=== PATIENT | male | born 1980 | race Two or more races ===

== ENCOUNTER 2024-06-19 05:47 | Inpatient (IN) | payer MEDICAID, OTHER ==
[~2024-06-19] VITALS: Ht 182.9 cm; Wt 72.0 kg
[2024-06-19] VITALS (8 sets, daily range): BP systolic 119–133; BP diastolic 67–77; PULSE 76–111; RESP 17–20; TEMP 98–98.6; O2SAT 94–98
[2024-06-19] MEDS: ONDANSETRON HCL 4 MG/2 ML VIAL IV ONE (07:11)
[2024-06-19] MEDS: THIAMINE 100mg/ml INJ (200mg/2ml VIAL) IV ONE (07:11)
[2024-06-19] MEDS: SODIUM CHLORIDE 0.9% 1,000 ML IV ONE ×2 (07:15→07:53)
[2024-06-19 07:50] LABS: Basophils # (auto) 0 10 ^3/uL (0-0.2); Basophils % (auto) 0.8 % (0.0-2.0); Eosinophils # (auto) 0 10 ^3/uL (0-0.8); Eosinophils % (auto) 0.3 % (0.0-7.0); Hematocrit 42.9 % (41.0-53.0); Hemoglobin 14.6 g/dL (13.5-17.5); Lymphocytes # (auto) 0.4 10 ^3/uL (0.4-5.4); Lymphocytes % (auto) 9.1 % (10.0-50.0); Mean Corpuscular Hemoglobin 31.5 pg (28.0-32.0); Mean Corpuscular Hgb Conc. 33.9 g/dL (32.0-36.0); Mean Corpuscular Volume 92.8 fL (80.0-100.0); Monocytes # (auto) 0.2 10 ^3/uL (0-1.3); Monocytes % (auto) 6.1 % (0.0-12.0); Neutrophils # (auto) 3.4 10 ^3/uL (1.6-8.6); Neutrophils % (auto) 83.7 % (37.0-80.0); Platelet Count (auto) 149 10^3/uL (140-450); Red Blood Cells 4.63 10^6/uL (4.5-5.90); Red Cell Distribution Width 16.5 % (11.8-14.3)
[2024-06-19] MEDS: LORazepam 2MG/ML-1ML VIAL IV ONE ×2 (07:53→10:30)
[2024-06-19 08:18] LABS: Chloride 104 mmol/L (98-107); Potassium 3.4 mmol/L (3.5-5.1); Sodium 143 mmol/L (136-145)
[2024-06-19 08:19] LABS: Anion Gap 12 (5-15); Calcium 9.2 mg/dL (8.7-10.4); Carbon Dioxide 27 mmol/L (20-30)
[2024-06-19 08:24] LABS: BUN/Creatinine Ratio 11.3 (10.0-20.0); Blood Urea Nitrogen 8 mg/dL (9-23); Glucose 106 mg/dL (74-106)
[2024-06-19] MEDS ORDERED: MORPHINE SULFATE INJ 2 MG/ml SYRG IV PRN (09:30)
[2024-06-19] MEDS ORDERED: LORazepam 2MG/ML-1ML VIAL IV PRN (09:30)
[2024-06-19] MEDS ORDERED: DOCUSATE SOD 100 MG CAP PO PRN (09:30)
[2024-06-19] MEDS: SODIUM CHLORIDE 0.9% 1,000 ML IV SCH (09:52)
[2024-06-19] MEDS: PANTOPRAZOLE 40 MG/10 ML VIAL INJ IV ONE (10:00)
[2024-06-19] MEDS: POTASSIUM CHL 20MEQ/100ML 100 ML IV SCH (10:00)
[2024-06-19] MEDS: ONDANSETRON HCL 4 MG/2 ML VIAL IV PRN (10:18)
[2024-06-19 10:23] LABS: Blood Alcohol 116.8 mg/dL (<10)
[2024-06-19 10:24] LABS: Phosphorus 2.3 mg/dL (2.4-5.1)
[2024-06-19] MEDS: LORazepam 2MG/ML-1ML VIAL IV PRN (10:28)
[2024-06-19] MEDS ORDERED: NITROGLYCERIN 0.4 MG SL TAB SL PRN (10:30)
[2024-06-19] MEDS ORDERED: chlorproMAZINE INECTION 25 MG in SODIUM CHL 0.9% 50 ML IV PRN (12:00)
[2024-06-19] MEDS ORDERED: FOLIC ACID 1 MG, MAGNESIUM SULF SDV 50% 8 MEQ, MULTIPLE VITAMIN 10 ML, THIAMINE INJ 100... INJ SCH (13:00)
[2024-06-19] MEDS ORDERED: chlorproMAZINE INECTION 25 MG in SODIUM CHL 0.9% 50 ML IV SCH (14:00)
[2024-06-19] MEDS: chlorproMAZINE HCL 25 MG/1 ML AMP IM ONE (18:12)
[2024-06-19] MEDS: FOLIC ACID 1 MG, MAGNESIUM SULF SDV 50% 8 MEQ, MULTIPLE VITAMIN 10 ML, THIAMINE INJ 100... INJ ONE (18:16)
[2024-06-20 05:00] VITALS: BP 129/72; PULSE 75; RESP 19; TEMP 97.7; O2SAT 96
[2024-06-20 06:10] LABS: Basophils # (auto) 0 10 ^3/uL (0-0.2); Basophils % (auto) 0.3 % (0.0-2.0); Eosinophils # (auto) 0 10 ^3/uL (0-0.8); Eosinophils % (auto) 0.4 % (0.0-7.0); Hematocrit 41.7 % (41.0-53.0); Hemoglobin 14.1 g/dL (13.5-17.5); Lymphocytes # (auto) 0.7 10 ^3/uL (0.4-5.4); Lymphocytes % (auto) 15.5 % (10.0-50.0); Mean Corpuscular Hemoglobin 31.5 pg (28.0-32.0); Mean Corpuscular Hgb Conc. 33.8 g/dL (32.0-36.0); Mean Corpuscular Volume 93.3 fL (80.0-100.0); Monocytes # (auto) 0.3 10 ^3/uL (0-1.3); Monocytes % (auto) 6.9 % (0.0-12.0); Neutrophils # (auto) 3.6 10 ^3/uL (1.6-8.6); Neutrophils % (auto) 76.9 % (37.0-80.0); Platelet Count (auto) 95 10^3/uL (140-450); Red Blood Cells 4.47 10^6/uL (4.5-5.90); White Blood Cell 4.7 10^3/uL (4.4-10.8)
[2024-06-20 06:31] LABS: Alanine Aminotransferase 110 U/L (7-40); Albumin 4.4 g/dL (3.2-4.8); Alkaline Phosphatase 78 U/L (46-116); Anion Gap 7 (5-15); Aspartate Aminotransferase 94 U/L (13-40); Blood Urea Nitrogen 6 mg/dL (9-23); Calcium 9.3 mg/dL (8.7-10.4); Carbon Dioxide 28 mmol/L (20-30); Chloride 102 mmol/L (98-107); Glucose 72 mg/dL (74-106); Potassium 3.4 mmol/L (3.5-5.1); Sodium 137 mmol/L (136-145)
[2024-06-20 06:32] LABS: Bilirubin, Total 1.5 mg/dL (0.2-1.0); Total Protein 6.7 g/dL (5.7-8.2)
[2024-06-20 08:00] VITALS: PULSE 92; RESP 14; O2SAT 96
[2024-06-20 09:00] VITALS: BP 127/89; PULSE 92; RESP 12; TEMP 98.2; O2SAT 96
[2024-06-20] MEDS: chlorproMAZINE HCL 25 MG/1 ML AMP IM ONE (09:30)
[2024-06-20] MEDS: PANTOPRAZOLE 40 MG/10 ML VIAL INJ IV SCH (09:30)
[2024-06-20 10:42] LABS: Amphetamine Screen, Urine Neg (NEGATIVE); Barbiturate Scree,Urine Neg (NEGATIVE); Benzodiazephine Screen, Urine Neg (NEGATIVE); Cannabinoid Screen, Urine Neg (NEGATIVE); Cocaine Screen, Urine Neg (NEGATIVE); Opiate Scree,Urine Neg (NEGATIVE); Phencyclidine Screen, Urine Neg (NEGATIVE)
[2024-06-20 13:00] VITALS: BP 136/64; PULSE 68; RESP 20; TEMP 97.8; O2SAT 93
[2024-06-20] MEDS: chlordiazePOXIDE HCL 25 MG CAP PO SCH ×2 (13:15→16:38)
[2024-06-20] MEDS ORDERED: chlorproMAZINE INECTION 25 MG in SODIUM CHL 0.9% 50 ML IV PRN (14:15)
[2024-06-20] MEDS ORDERED: chlorproMAZINE INECTION 25 MG in SODIUM CHL 0.9% 50 ML IV SCH (14:15)
[2024-06-20 16:55] VITALS: BP 133/82; PULSE 71; RESP 20; TEMP 98.6; O2SAT 96
[2024-06-20] MEDS ORDERED: BACLOFEN 10 MG TAB PO SCH (18:15)
[2024-06-20] MEDS: chlorproMAZINE HCL 25 MG TAB PO PRN (19:23)
[2024-06-20] MEDS: FOLIC ACID 1 MG, MAGNESIUM SULF SDV 50% 8 MEQ, MULTIPLE VITAMIN 10 ML, THIAMINE INJ 100... INJ SCH (20:04)
[2024-06-20 21:00] VITALS: BP 124/65; PULSE 68; RESP 16; TEMP 98.3; O2SAT 96
[2024-06-21 05:00] VITALS: BP 119/73; PULSE 71; RESP 17; O2SAT 96
[2024-06-21 09:00] VITALS: BP 108/75; PULSE 94; RESP 18; TEMP 98.3; O2SAT 96
[2024-06-21] MEDS: chlordiazePOXIDE HCL 25 MG CAP PO SCH (09:16)
[2024-06-21 10:44] LABS: Basophils # (auto) 0 10 ^3/uL (0-0.2); Basophils % (auto) 0.2 % (0.0-2.0); Eosinophils # (auto) 0 10 ^3/uL (0-0.8); Eosinophils % (auto) 0.4 % (0.0-7.0); Hematocrit 44.9 % (41.0-53.0); Hemoglobin 15.1 g/dL (13.5-17.5); Lymphocytes # (auto) 0.6 10 ^3/uL (0.4-5.4); Lymphocytes % (auto) 6.7 % (10.0-50.0); Mean Corpuscular Hemoglobin 31.1 pg (28.0-32.0); Mean Corpuscular Hgb Conc. 33.6 g/dL (32.0-36.0); Mean Corpuscular Volume 92.8 fL (80.0-100.0); Monocytes # (auto) 0.4 10 ^3/uL (0-1.3); Monocytes % (auto) 4.5 % (0.0-12.0); Neutrophils # (auto) 7.4 10 ^3/uL (1.6-8.6); Neutrophils % (auto) 88.2 % (37.0-80.0); Nucleated Red Blood Cells % 0.1 %; Platelet Count (auto) 90 10^3/uL (140-450); Red Blood Cells 4.84 10^6/uL (4.5-5.90); White Blood Cell 8.4 10^3/uL (4.4-10.8)
[2024-06-21 11:03] LABS: Alanine Aminotransferase 325 U/L (7-40); Albumin 4.6 g/dL (3.2-4.8); Alkaline Phosphatase 88 U/L (46-116); Anion Gap 4 (5-15); Aspartate Aminotransferase 524 U/L (13-40); Calcium 9.5 mg/dL (8.7-10.4); Carbon Dioxide 27 mmol/L (20-30); Chloride 102 mmol/L (98-107); Glucose 150 mg/dL (74-106); Magnesium 2.1 mg/dL (1.6-2.6); Potassium 3.3 mmol/L (3.5-5.1); Sodium 133 mmol/L (136-145)
[2024-06-21 11:04] LABS: BUN/Creatinine Ratio 7.6 (10.0-20.0); Bilirubin, Total 1.8 mg/dL (0.2-1.0); Blood Urea Nitrogen < 5 mg/dL (9-23); Phosphorus 2.1 mg/dL (2.4-5.1); Total Protein 7.1 g/dL (5.7-8.2)
[2024-06-21 11:41] LABS: Lipase 80 U/L (12-53)
[2024-06-21 13:00] VITALS: BP 121/82; PULSE 83; RESP 12; TEMP 98.6; O2SAT 95
[2024-06-21 17:00] VITALS: BP 116/75; PULSE 70; RESP 20; TEMP 98.3; O2SAT 96
[2024-06-21] MEDS: diazePAM 5 MG TAB PO PRN (17:56)
[2024-06-21 21:00] VITALS: BP 112/73; PULSE 77; RESP 18; TEMP 98.7; O2SAT 94
[2024-06-22 05:00] VITALS: BP 113/73; PULSE 75; RESP 18; TEMP 97.5; O2SAT 95
[2024-06-22] MEDS: chlordiazePOXIDE HCL 25 MG CAP PO SCH (06:14)
[2024-06-22 08:15] VITALS: BP 110/75; PULSE 91; RESP 18; TEMP 98; O2SAT 96
[2024-06-22] MEDS: POTASSIUM CHL 20 Meq TABLET PO ONE (09:15)
[2024-06-22] MEDS: MAGNESIUM OXIDE 400 MG TAB PO SCH (11:15)
[2024-06-22] MEDS: THIAMINE HCL 100 MG TAB PO SCH (11:15)
[2024-06-22] MEDS: MULTIPLE VITAMIN TAB PO SCH (11:15)
[2024-06-22] MEDS: FOLIC ACID 1 MG TAB PO SCH (11:15)
[2024-06-22 11:25] LABS: Basophils # (auto) 0 10 ^3/uL (0-0.2); Basophils % (auto) 0.4 % (0.0-2.0); Eosinophils # (auto) 0.1 10 ^3/uL (0-0.8); Eosinophils % (auto) 2.4 % (0.0-7.0); Hematocrit 44.6 % (41.0-53.0); Hemoglobin 14.6 g/dL (13.5-17.5); Lymphocytes # (auto) 0.7 10 ^3/uL (0.4-5.4); Lymphocytes % (auto) 14.9 % (10.0-50.0); Mean Corpuscular Hgb Conc. 32.7 g/dL (32.0-36.0); Mean Corpuscular Volume 94.7 fL (80.0-100.0); Monocytes # (auto) 0.3 10 ^3/uL (0-1.3); Monocytes % (auto) 7.4 % (0.0-12.0); Neutrophils # (auto) 3.4 10 ^3/uL (1.6-8.6); Neutrophils % (auto) 74.9 % (37.0-80.0); Platelet Count (auto) 83 10^3/uL (140-450); Red Blood Cells 4.71 10^6/uL (4.5-5.90); White Blood Cell 4.6 10^3/uL (4.4-10.8)
[2024-06-22 11:38] LABS: Chloride 106 mmol/L (98-107); Potassium 3.1 mmol/L (3.5-5.1); Sodium 138 mmol/L (136-145)
[2024-06-22 11:39] LABS: Anion Gap 6 (5-15); Carbon Dioxide 26 mmol/L (20-30)
[2024-06-22 11:40] LABS: Calcium 9.5 mg/dL (8.7-10.4)
[2024-06-22 11:44] LABS: Glucose 102 mg/dL (74-106)
[2024-06-22 11:50] LABS: BUN/Creatinine Ratio 7.7 (10.0-20.0); Blood Urea Nitrogen < 5 mg/dL (9-23)
[2024-06-22 12:58] VITALS: TEMP 36.7
[2024-06-22 13:01] VITALS: TEMP 36.7
== END 2024-06-22 13:20 | disposition home or self-care (01) | DRG 241 ==
LOC: EDSEX 05:47 → EDBD 05:47 → ER 05:47 → OVERFLOW 10:26 → EAST 11:21
PROVIDERS: ADMIT Internal Medicine; ATTEND Internal Medicine
DX: K29.70 Gastritis, unspecified, without bleeding (principal); G92.8 Other toxic encephalopathy; K85.90 Acute pancreatitis without necrosis or infection, unspecified; T51.0X1A Toxic effect of ethanol, accidental (unintentional), initial encounter; E87.6 Hypokalemia; F10.139 Alcohol abuse with withdrawal, unspecified; R06.6 Hiccough; Y90.5 Blood alcohol level of 100-119 mg/100 ml
CPT/HCPCS: 36415; 74176; 80048; 80053; 80307; 80320; 82607; 83690; 83735; 84100; 85025; 87086; 93005; 96361; 96374; 96375; 99291; G0378; J2405; J2470; J3480; Q0161